=== PATIENT | female | born 1965 | race Caucasian/White ===

== ENCOUNTER → 2021-10-24 | Outpatient (CLI) | payer MEDICARE ==
[2014-08-12 13:50] VITALS: BP 136/88
[~2021-10-24] MED LIST: AMIT25TA PO; ASPI-886 PO; CRESTOR20 MG PO; CYAN-25 PO; ESTR2TAB4 PO; FLEC50TA PO; OMEG500C PO; OMEP20CA5 PO; PENT100C PO; PHEN-318 PO; TEMA30CA PO; TOPI25TA7 PO; TRIPLIX; VERA180T34 PO
--- NOTE | 2021-10-24 10:30 | KCIC ---
Three-view right shoulder dated 10/24/2021. No comparison available. CLINICAL INDICATION: Pain. FINDINGS: 3 views right shoulder show normal bony alignment. No displaced fracture. No periostitis or bone dest ruction. No acute osseous or articular abnormality. Mild hypertrophic change at the AC joint. IMPRESSION: No acute radiographic abnormality. Electronically signed by: Romeo Dunham MD (10/24/2021 10:27 AM) [id number]
== END ==
LOC: KCIC 10:12
PROVIDERS: ATTEND Nurse Practitioner Family
DX: Z00.00 Encounter for general adult medical examination without abnormal findings (principal); M89.311 Hypertrophy of bone, right shoulder; M25.511 Pain in right shoulder
CPT/HCPCS: 73030